=== PATIENT | male | born 1985 ===

== ENCOUNTER 2016-11-05 09:12 | Day surgery (SDC) | payer OTHER ==
[2016-11-05 09:38] VITALS: BMI 22.9
[2016-11-05 09:53] VITALS: O2SAT 100
[2016-11-05] MEDS ORDERED: Propofol 10 mg/ml Inj (20 ML) ONE (11:04)
[2016-11-05] MEDS ORDERED: Lactated Ringer's 500 ML IV ONE (11:10)
[2016-11-05 14:40] VITALS: TEMP 97
[2016-11-05 14:41] VITALS: RESP 20
[2016-11-05 14:48] VITALS: BP 135/82; PULSE 58
== END 2016-11-05 12:25 | disposition home or self-care (01) ==
LOC: C.ENDO 09:12
PROVIDERS: ATTEND Internal Medicine Gastroenterology
DX: K29.70 Gastritis, unspecified, without bleeding (principal); K44.9 Diaphragmatic hernia without obstruction or gangrene; R10.11 Right upper quadrant pain
CPT/HCPCS: 43239; 88305; J2704; J3010; J7120